=== PATIENT | male | born 1965 | race Caucasian/White ===

== ENCOUNTER 2018-04-15 09:29 | Day surgery (SDC) | payer OTHER ==
[~2018-04-15 09:29] MED LIST: Lactated Ringers 1,000 ML IV SCH; Sodium Chloride 0.9% 10 ML Syringe FLUSH PRN; Sodium Chloride 0.9% 2.5 ML Syringe FLUSH PRN
--- NOTE | 2018-04-15 10:39 | PCM.PREANE ---
Preanesthetic Assessment - Anesthesia/Transfusion/Family Hx Anesthesia History: Prior Anesthesia Without Reaction Family History of Anesthesia Reaction: No Transfusion History: No Prior Transfusion(s) Intubation History: Unknown - Review of Systems General: No Symptoms Pulmonary: No Symptoms Cardiovascular: No Symptoms Gastrointestinal: No Symptoms, Other (screening colonoscopy) Neurological: No Symptoms Other: Reports: None - Physical Assessment O2 Sat by Pulse Oximetry: 97 Respiratory Rate: 16 Vital Signs: Last Vital Signs Temp 37 C 04/15/18 10:08 Pulse 108 H 04/15/18 10:08 Resp 16 04/15/18 10:08 BP 140/92 H 04/15/18 10:08 Pulse Ox 97 04/15/18 10:08 Height: 1.68 m Weight: 91.172 kg ASA Class: 2 Mental Status: Alert & Oriented x3 Airway Class: Mallampati = 2 Dentition: Reports: Normal Dentition Thyro-Mental Finger Breadths: 3 Mouth Opening Finger Breadths: 3 ROM/Head Extension: Full Lungs: Clear to Auscultation, Normal Respiratory Effort Cardiovascular: Regular Rate, Regular Rhythm - Allergies Allergies/Adverse Reactions: Allergies Allergy/AdvReac Type Severity Reaction Status Date / Time No Known Allergies Allergy Verified 04/12/18 12:53 - Blood Blood Available: No - Anesthesia Plan Pre-Op Medication Ordered: None - Acknowledgements Anesthesia Type Planned: MAC Pt an Appropriate Candidate for the Planned Anesthesia: Yes Alternatives and Risks of Anesthesia Discussed w Pt/Guardian: Yes Pt/Guardian Understands and Agrees with Anesthesia Plan: Yes PreAnesthesia Questionnaire HEENT History: Reports: Other (See Below) Other HEENT History: wears reading glasses Cardiovascular History: Reports: High Cholesterol Other Respiratory History: smokes 1 PPD/20 years Gastrointestinal History: Reports: GERD Musculoskeletal History: Reports: Back Pain, Chronic, Fracture Other Musculoskeletal History: has herniation of disc at L4-L5, has had Epidural Steroid Injections in the past..... hx of fx left forearm Neurological History: Reports: Concussion Endocrine/Metabolic History: Reports: Obesity/BMI 30+ - Past Surgical History GI Surgical History: Reports: EGD, Hernia, Inguinal Musculoskeletal Surgical History: Reports: Arthroscopic Knee - SUBSTANCE USE Smoking Status *Q: Current Every Day Smoker (1 ppd) Tobacco Use Within Last Twelve Months: Cigarettes Recreational Drug Use History: No - HOME MEDS Home Medications: Home Meds Acetaminophen/Diphenhydramine [Tylenol Pm Ex-Strength Caplet] 1 tab PO BEDTIME PRN 04/12/18 [History] Aspirin [Adult Low Dose Aspirin EC] 81 mg PO DAILY 04/12/18 [History] Esomeprazole Magnesium [Nexium] 20 mg PO DAILY 04/12/18 [History] Fish Oil/[place]-3 Fatty Acids [Fish Oil 1,000 MG] 1,000 mg PO DAILY 04/12/18 [ History] Gemfibrozil 600 mg PO BID 04/12/18 [History] Naproxen 1,000 mg PO QAM 04/12/18 [History] - CURRENT (IN HOUSE) MEDS Current Meds: Current Medications Lactated Ringer's (Ringers, Lactated) 1,000 mls @ 125 mls/hr IV ASDIRECTED KUMAR Last Admin: 04/15/18 10:15 Dose: 125 mls/hr Sodium Chloride (Saline Flush) 10 ml FLUSH ASDIRECTED PRN PRN Reason: Keep Vein Open Sodium Chloride (Saline Flush) 2.5 ml FLUSH ASDIRECTED PRN PRN Reason: Keep Vein Open Sodium Chloride (Saline Flush) 10 ml FLUSH ASDIRECTED PRN PRN Reason: Keep Vein Open Sodium Chloride (Saline Flush) 2.5 ml FLUSH ASDIRECTED PRN PRN Reason: Keep Vein Open
[2018-04-15] MEDS ORDERED: Lidocaine 2% 5 ML SDV ONE (10:42)
[2018-04-15] MEDS ORDERED: Propofol 200 MG/20 ML SDV ONE (10:42)
[2018-04-15] MEDS ORDERED: Midazolam 1 MG/ML 2 ML SDV ONE (10:42)
[2018-04-15] MEDS ORDERED: fentaNYL 100 MCG/2 ML SDV ONE (10:42)
--- NOTE | 2018-04-15 11:49 | PCM.OPNOTE ---
- General Post-Op/Procedure Note Date of Surgery/Procedure: 04/15/18 Operative Procedure(s): Colonoscopy Findings: Sigmoid colon polyp Pre Op Diagnosis: Normal colonoscopy Post-Op Diagnosis: sigmoid colon polyp Anesthesia Technique: MAC Primary Surgeon: Alysha Lo Condition: Good
--- NOTE | 2018-04-15 12:15 | PCM48HPAN ---
Post Anesthesia Note - EVALUATION WITHIN 48HRS OF ANESTHETIC Vital Signs in Normal Range: Yes Patient Participated in Evaluation: Yes Respiratory Function Stable: Yes Airway Patent: Yes Cardiovascular Function Stable: Yes Hydration Status Stable: Yes Pain Control Satisfactory: Yes Nausea and Vomiting Control Satisfactory: Yes Mental Status Recovered: Yes Resp Rate: 11 - COMMENTS/OBSERVATIONS Free Text/Narrative:: no anesthesia problems
--- NOTE | 2018-04-15 19:41 | OR ---
SURGEON: JOCELIN CORCORAN MD DATE OF PROCEDURE: 04/15/2018 PREOPERATIVE DIAGNOSIS: Screening colonoscopy. POSTOPERATIVE DIAGNOSIS: Sigmoid colon polyp. PROCEDURE PERFORMED: Screening colonoscopy. ANESTHESIA: MAC. INSTRUMENT USED: Olympus colonoscope. EXTENT OF EXAM: To the cecum. PREPARATION: Good. LIMITATIONS: None. INDICATION FOR EXAMINATION: The patient is a 52-year-old male, who presents for first time screening colonoscopy. We discussed the procedure, expected perioperative course, and risks including bleeding, infection, or damage to surrounding structures including perforation. The patient verbalized understanding and wishes to proceed. PROCEDURE IN DETAIL: The patient was brought to the endoscopy suite and placed in a left lateral decubitus position. A time-out was completed verifying the patient's name, age, date of , allergies, and procedure to be performed. Monitored anesthesia care was induced and continuous oxygen was provided via nasal cannula throughout the procedure. After adequate sedation was achieved, a digital rectal exam was performed. This exam was within normal limits. A well lubricated colonoscope was inserted in the rectum and advanced under direct visualization to the level of cecum. The cecum was identified by both visual and anatomic landmarks. A photograph was taken of the cecal cap. The scope was then fully withdrawn while examining the color, texture, anatomy, and integrity of the mucosa from the cecum to the anal canal. The patient was found to have one pedunculated 3 to 5 mm polyp within the sigmoid colon. This was removed in a piecemeal fashion using cold biopsy forceps. The scope was then brought into the rectum and retroflexed to allow visualization of the anal canal opening. This appeared normal and a photograph was taken. The scope was then straightened out and removed from the patient. The patient was then transferred to the PACU in stable condition. ENDOSCOPIC DIAGNOSIS: Sigmoid colon polyp. RECOMMENDATIONS: Follow up in clinic in 2 weeks. DALILA WELDON /[id number]
== END 2018-04-15 12:21 | disposition home or self-care (01) ==
LOC: MW.SDS 09:29
PROVIDERS: ATTEND Surgery
DX: Z12.11 Encounter for screening for malignant neoplasm of colon (principal); D12.5 Benign neoplasm of sigmoid colon; K27.9 Peptic ulcer, site unspecified, unspecified as acute or chronic, without hemorrhage or perforation; K21.9 Gastro-esophageal reflux disease without esophagitis; G89.29 Other chronic pain; M54.9 Dorsalgia, unspecified; E78.00 Pure hypercholesterolemia, unspecified; E66.9 Obesity, unspecified; Z68.32 Body mass index [BMI] 32.0-32.9, adult; F17.210 Nicotine dependence, cigarettes, uncomplicated; Z79.899 Other long term (current) drug therapy; Z79.82 Long term (current) use of aspirin
CPT/HCPCS: 45380; J2250; J3010; J7120; 00811; 88305; J2704

== ENCOUNTER 2020-05-27 04:58 | Emergency (ER) | payer OTHER ==
[2020-05-27] MEDS ORDERED: Ondansetron 4 MG/2 ML SDV ONE (05:09)
[2020-05-27] MEDS ORDERED: Ondansetron 4 MG/2 ML SDV IVPUSH ONE ×2 (05:12→07:52)
[2020-05-27] MEDS ORDERED: Sodium Chloride 0.9% 1,000 ML IV SCH (05:15)
--- NOTE | 2020-05-27 05:23 | EDM.PDOC ---
<Michele Santoyo - Last Filed: 05/27/20 07:39> ED HPI GENERAL MEDICAL PROBLEM - General Chief Complaint: Gastrointestinal Problem Stated Complaint: DEHYDRATION, VOMITING Time Seen by Provider: 05/27/20 05:19 - History of Present Illness INITIAL COMMENTS - FREE TEXT/NARRATIVE: History of present illness: [] About 6 AM on 26 May 2020 the patient had several shots. He drinks what he calls too much. Yesterday he did not have any symptoms after that. This morning he woke up at 430 which is his usual time. He was nauseated and had crampy abdominal pain. He has vomited more times than he can count. He has not made urine. He has had diarrhea several times. He has crampy abdominal pain that is moderately severe and lets up after he has a bowel movement. History hernia surgery. If the patient smokes. He also takes one blood pressure medicine and some supplements. Review of systems: As per history of present illness and below otherwise all systems reviewed and negative. Past medical history: As per history of present illness and as reviewed below otherwise noncontributory. Surgical history: As per history of present illness and as reviewed below otherwise noncontributory. Social history: No reported history of drug or alcohol abuse. Family history: As per history of present illness and as reviewed below otherwise noncontributory. Physical exam: Constitutional - well developed, well-nourished and in no acute distress HEENT - normocephalic, no evidence of trauma - external nose and mouth normal - no mass in neck and no JVD - mucosae moist EYES - full EOM, PERRL, no icterus - no evidence of inflammation, injection, or drainage Respiratory - no respiratory distress, equal bilateral expansion, lungs clear to auscultation and no abnormal lung sounds Cardiovascular - Regular Rhythm with S1 and S2 appreciated and no murmur, gallop or rub. Peripheral pulses symmetrically normal in all four extremities GI - abdomen soft without distension or organomegaly - normal bowel sounds - no guard or rebound Musculoskeletal no gross deformity of long bones or joints - no tenderness, swelling or edema Neurologic -slight tremor at rest worse with intention. Alert and oriented times four - CN II-XII grossly intact - motor sensory and coordination symmetrically normal Psychiatric - appropriate mood and affect with normal thought content Hematologic - No petechiae or purpura - mucosa appropriate color and sclera not pale - normal nail bed color and refill Integument - no rash or evidence of trauma - normal turgor Diagnostics: Lab work and verify response to hydration ondansetron [] Therapeutics: [] Ondansetron and fluids Impression: [] Plan: [] Definitive disposition and diagnosis as appropriate pending reevaluation and review of above. abdomen Pain Score (Numeric/FACES): 6 - Related Data Allergies Allergy/AdvReac Type Severity Reaction Status Date / Time No Known Allergies Allergy Verified 05/27/20 05:13 Home Meds: Home Meds Esomeprazole Magnesium [Nexium] 20 mg PO DAILY 04/12/18 [History] Fish Oil/[place]-3 Fatty Acids [Fish Oil 1,000 MG] 1,000 mg PO DAILY 04/12/18 [History] Gemfibrozil 600 mg PO BID 04/12/18 [History] Naproxen 1,000 mg PO QAM 04/12/18 [History] Olmesartan Medoxomil 5 mg PO DAILY 05/27/20 [History] Past Medical History HEENT History: Reports: Other (See Below) Other HEENT History: wears reading glasses Cardiovascular History: Reports: Hypertension Other Respiratory History: smokes 1 PPD/20 years Gastrointestinal History: Reports: GERD Musculoskeletal History: Reports: Back Pain, Chronic, Fracture Other Musculoskeletal History: has herniation of disc at L4-L5, has had Epidural Steroid Injections in the past..... hx of fx left forearm Neurological History: Reports: Concussion Endocrine/Metabolic History: Reports: Obesity/BMI 30+ - Past Surgical History HEENT Surgical History: Reports: None Cardiovascular Surgical History: Reports: None GI Surgical History: Reports: EGD, Hernia, Inguinal Neurological Surgical History: Reports: None Musculoskeletal Surgical History: Reports: Arthroscopic Knee Social & Family History - Family History Family Medical History: Noncontributory - Tobacco Use Smoking Status *Q: Current Every Day Smoker Years of Tobacco use: 15 Packs/Tins Daily: 1 - Caffeine Use Caffeine Use: Reports: Coffee - Recreational Drug Use Recreational Drug Use: No ED ROS GENERAL - Review of Systems Review Of Systems: Comprehensive ROS is negative, except as noted in HPI. ED EXAM, GENERAL - Physical Exam Exam: See Below Free Text/Narrative:: The physical exam is in my HPI EKG INTERPRETATION EKG Date: 05/27/20 Rhythm: Other (Sinus tachycardia) Rate (Beats/Min): 120 P-Wave: Present ST-T: Other (Nonspecific ST abnormality) Comparison: NA - No Prior EKG EKG Interpretation Comments: ST segment depressions of unknown significance. No obvious acute KS Course - Vital Signs Text/Narrative:: 6:42 AM renal failure is identified. He had lab work about a year ago at the [facility] and was not told there is anything wrong with his kidneys. He is not diabetic. He does take Loren 5 mg 2 tabs in the morning. He has not had it yet. Blood pressure is 168 systolic and I allow him to take 10 mg of his own olmesartan. The patient does not feel like he has any urine in his bladder. After liter fluid he still has no urine bladder scanner will be obtained and he will be tested. If he has urine will insert a Hurtado. If not we will consult medicine for admission. 50 3 AM the patient urinated about 5 mL of urine in the bladder scanner shows it is empty. He takes naproxen 1g a day for a long time according to him. 1 AM I discussed the case with hospitalist here Dr. Isbell. Because of the acid and elevated sugar and low calcium she wanted nephrology involved. 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 Michele Santoyo. CBC shows a leukocytosis with neutrophilic predominance. Metabolic panel shows acute renal failure with creatinine of 4.5. Elevated glucose and hypocalcemia noted along with elevated total bilirubin. Negative troponin. Normal lipase. Urinalysis shows positive nitrites, moderate bilirubin, trace leukocyte esterase, 2+ bacteria. Patient continues to have resting tachycardia so I ordered a second liter of crystalloid and we will repeat his twelve-lead EKG. He has some ST segment depression in the precordial leads but adamantly denies any chest discomfort or shortness of breath to suggest acute coronary syndrome. Repeat twelve-lead EKG at 8:30 AM shows sinus tachycardia at 118 bpm. Did note T wave inversions in leads II and III. Also noted persistent ST segment depression in leads V2 through V6, seen on the initial ECG. Patient adamantly denies any chest discomfort or shortness of breath and troponin testing is negative. I am wondering if these ST segment changes are rate related or possibly due to electrolyte disturbance such as is hypocalcemia. Suspicion for an acute coronary syndrome is low at this point. He was transferred to the care of the ground EMS crew in good condition. Last Recorded V/S: Last Vital Signs Temp 36.4 C 05/27/20 05:05 Pulse 118 H 05/27/20 08:50 Resp 16 05/27/20 07:37 BP 169/72 H 05/27/20 08:50 Pulse Ox 97 05/27/20 08:50 - Orders/Labs/Meds Orders: Active Orders 24 hr Category Date Time Status Communication Order [RC] STAT Care 05/27/20 06:41 Active EKG Documentation Completion [RC] AM Care 05/27/20 07:10 Active EKG Documentation Completion [RC] STAT Care 05/27/20 08:25 Active Labs: Laboratory Tests 05/27/20 05/27/20 05/27/20 Range/Units 05:10 05:10 06:45 WBC 20.05 H (4.0-11.0) K/uL RBC 4.95 (4.50-5.90) M/uL Hgb 17.1 H (13.0-17.0) g/dL Hct 48.0 (38.0-50.0) % MCV 97.0 (80.0-98.0) fL MCH 34.5 H (27.0-32.0) pg MCHC 35.6 (31.0-37.0) g/dL RDW Std Deviation 46.0 (28.0-62.0) fl RDW Coeff of Heidy 13 (11.0-15.0) % Plt Count 255 (150-400) K/uL MPV 12.00 (7.40-12.00) fL Neut % (Auto) 85.4 H (48.0-80.0) % Lymph % (Auto) 11.0 L (16.0-40.0) % Early % (Auto) 3.4 (0.0-15.0) % Eos % (Auto) 0.0 (0.0-7.0) % Baso % (Auto) 0.2 (0.0-1.5) % Neut # (Auto) 17.1 H (1.4-5.7) K/uL Lymph # (Auto) 2.2 (0.6-2.4) K/uL Early # (Auto) 0.7 (0.0-0.8) K/uL Eos # (Auto) 0.0 (0.0-0.7) K/uL Baso # (Auto) 0.0 (0.0-0.1) K/uL Nucleated RBC % 0.1 /100WBC Nucleated RBCs # 0 K/uL Sodium 136 (136-148) mmol/L Potassium 3.5 (3.5-5.1) mmol/L Chloride 92 L (98-107) mmol/L Carbon Dioxide 17.8 L (21.0-32.0) mmol/L BUN 27 H (7.0-18.0) mg/dL Creatinine 4.5 H (0.8-1.3) mg/dL Est Cr Clr Drug Dosing 16.74 mL/min Estimated GFR (MDRD) 13.7 ml/min Glucose 247 H (74-106) mg/dL Calcium 6.6 L (8.5-10.1) mg/dL Total Bilirubin 1.4 H (0.2-1.0) mg/dL AST 76 H (15-37) IU/L ALT 62 (14-63) IU/L Alkaline Phosphatase 86 (46-116) U/L Troponin I (0.000-0.056) ng/mL Total Protein 9.8 H (6.4-8.2) g/dL Albumin 5.3 H (3.4-5.0) g/dL Globulin 4.5 H (2.6-4.0) g/dL Albumin/Globulin Ratio 1.2 (0.9-1.6) Lipase 100 (73-393) U/L Urine Color YELLOW Urine Appearance SLT CLOUDY Urine pH 5.0 (5.0-8.0) Ur Specific [place] >= 1.030 (1.001-1.035) Urine Protein 100 H (NEGATIVE) mg/dL Urine Glucose (UA) NEGATIVE (NEGATIVE) mg/dL Urine Ketones TRACE H (NEGATIVE) mg/dL Urine Occult Blood TRACE-INTACT H (NEGATIVE) Urine Nitrite POSITIVE H (NEGATIVE) Urine Bilirubin MODERATE H (NEGATIVE) Urine Ictotest NEGATIVE Urine Urobilinogen 1.0 (<2.0) EU/dL Ur Leukocyte Esterase TRACE H (NEGATIVE) U Hyaline Cast (Auto) 0-2 (0-2/LPF) Urine RBC 0-2 (0-2/HPF) Urine WBC 4-7 (0-5/HPF) Ur Epithelial Cells FEW (NONE-FEW) Calcium Oxalate Crystal RARE (NEGATIVE) Urine Bacteria 2+ H (NEGATIVE) Fine Granular Casts 0-1 (NEGATIVE) Urine Mucus LIGHT (NONE-MOD) Urinalysis Comment 05/27/20 Range/Units 07:52 WBC (4.0-11.0) K/uL RBC (4.50-5.90) M/uL Hgb (13.0-17.0) g/dL Hct (38.0-50.0) % MCV (80.0-98.0) fL MCH (27.0-32.0) pg MCHC (31.0-37.0) g/dL RDW Std Deviation (28.0-62.0) fl RDW Coeff of [place] (11.0-15.0) % Plt Count (150-400) K/uL MPV (7.40-12.00) fL Neut % (Auto) (48.0-80.0) % Lymph % (Auto) (16.0-40.0) % Early % (Auto) (0.0-15.0) % Eos % (Auto) (0.0-7.0) % Baso % (Auto) (0.0-1.5) % Neut # (Auto) (1.4-5.7) K/uL Lymph # (Auto) (0.6-2.4) K/uL Early # (Auto) (0.0-0.8) K/uL Eos # (Auto) (0.0-0.7) K/uL Baso # (Auto) (0.0-0.1) K/uL Nucleated RBC % /100WBC Nucleated RBCs # K/uL Sodium (136-148) mmol/L Potassium (3.5-5.1) mmol/L Chloride (98-107) mmol/L Carbon Dioxide (21.0-32.0) mmol/L BUN (7.0-18.0) mg/dL Creatinine (0.8-1.3) mg/dL Est Cr Clr Drug Dosing mL/min Estimated GFR (MDRD) ml/min Glucose (74-106) mg/dL Calcium (8.5-10.1) mg/dL Total Bilirubin (0.2-1.0) mg/dL AST (15-37) IU/L ALT (14-63) IU/L Alkaline Phosphatase (46-116) U/L Troponin I < 0.050 (0.000-0.056) ng/mL Total Protein (6.4-8.2) g/dL Albumin (3.4-5.0) g/dL Globulin (2.6-4.0) g/dL Albumin/Globulin Ratio (0.9-1.6) Lipase (73-393) U/L Urine Color Urine Appearance Urine pH (5.0-8.0) Ur Specific [place] (1.001-1.035) Urine Protein (NEGATIVE) mg/dL Urine Glucose (UA) (NEGATIVE) mg/dL Urine Ketones (NEGATIVE) mg/dL Urine Occult Blood (NEGATIVE) Urine Nitrite (NEGATIVE) Urine Bilirubin (NEGATIVE) Urine Ictotest Urine Urobilinogen (<2.0) EU/dL Ur Leukocyte Esterase (NEGATIVE) U Hyaline Cast (Auto) (0-2/LPF) Urine RBC (0-2/HPF) Urine WBC (0-5/HPF) Ur Epithelial Cells (NONE-FEW) Calcium Oxalate Crystal (NEGATIVE) Urine Bacteria (NEGATIVE) Fine Granular Casts (NEGATIVE) Urine Mucus (NONE-MOD) Urinalysis Comment Meds: Medications Discontinued Medications Generic Name Dose Route Start Last Admin Trade Name Freq PRN Reason Stop Dose Admin Calcium Gluconate 1 gm 05/27/20 06:59 05/27/20 07:36 Calcium Gluconate IV 05/27/20 07:00 1 gm Q6HR STA Administration Sodium Chloride 1,000 mls @ 999 mls/hr 05/27/20 05:15 05/27/20 05:21 Normal Saline IV 999 mls/hr ASDIRECTED KUMAR Administration Lactated Ringer's 1,000 mls @ 999 mls/hr 05/27/20 07:54 05/27/20 08:09 Ringers, Lactated IV 05/27/20 08:54 999 mls/hr .BOLUS ONE Administration Lorazepam 0.5 mg 05/27/20 05:52 05/27/20 06:25 Ativan PO 05/27/20 05:53 0.5 mg ONETIME ONE Administration Ondansetron HCl Confirm 05/27/20 05:09 05/27/20 05:21 Zofran Administered 05/27/20 05:10 Not Given Dose 4 mg .ROUTE .STK-MED ONE Ondansetron HCl 4 mg 05/27/20 05:12 05/27/20 05:21 Zofran IVPUSH 05/27/20 05:13 4 mg ONETIME ONE Administration Ondansetron HCl 4 mg 05/27/20 07:52 05/27/20 08:09 Zofran IVPUSH 05/27/20 07:53 4 mg ONETIME ONE Administration Departure - Departure Time of Disposition: 08:30 Sepsis Event Note (ED) - Focused Exam Vital Signs: Vital Signs Temp Pulse Resp BP Pulse Ox 05/27/20 08:50 118 H 169/72 H 97 05/27/20 07:37 113 H 16 106/69 97 05/27/20 05:45 127 H 18 119/95 H 95 05/27/20 05:08 125 H 149/112 H 05/27/20 05:05 36.4 C 18 97
[2020-05-27 05:46] LABS: CARBON DIOXIDE,CO2 17.8 mmol/L (21.0-32.0); POTASSIUM,K 3.5 mmol/L (3.5-5.1)
[2020-05-27] MEDS ORDERED: LORazepam 0.5 MG Tab PO ONE (05:52)
[2020-05-27] MEDS ORDERED: Calcium Gluconate 10% 1 GM/10 ML SDV IV STA (06:59)
[2020-05-27] MEDS ORDERED: Lactated Ringers 1,000 ML IV ONE (07:54)
== END 2020-05-27 08:56 ==
LOC: MW.ED 04:58
DX: N17.9 Acute kidney failure, unspecified (principal); E83.51 Hypocalcemia; K52.9 Noninfective gastroenteritis and colitis, unspecified; R73.9 Hyperglycemia, unspecified; F17.210 Nicotine dependence, cigarettes, uncomplicated; K21.9 Gastro-esophageal reflux disease without esophagitis; E66.9 Obesity, unspecified; Z68.29 Body mass index [BMI] 29.0-29.9, adult
CPT/HCPCS: 36415; 51798; 80053; 81001; 83690; 84484; 85025; 93005; 96361; 96374; 96375; 96376; 99285; 99285-25; A9270-GY; J0610; J2405; J7030; J7120

== ENCOUNTER 2023-09-10 09:09 | Day surgery (SDC) | payer OTHER ==
[~2023-09-10 09:09] MED LIST changes: +Sodium Chloride 0.9% 20 ML SDV IV PRN; +propofoL 50 ML ONE
[2023-09-10] MEDS ORDERED: Ondansetron 4 MG/2 ML SDV ONE (09:39)
== END 2023-09-10 11:50 | disposition home or self-care (01) ==
LOC: MW.SDS 09:09
PROVIDERS: ATTEND Surgery
DX: Z12.11 Encounter for screening for malignant neoplasm of colon (principal); K62.1 Rectal polyp; K21.9 Gastro-esophageal reflux disease without esophagitis; I10 Essential (primary) hypertension; F17.210 Nicotine dependence, cigarettes, uncomplicated; Z79.899 Other long term (current) drug therapy
CPT/HCPCS: 45380; J2405; J2704; J7120; 00811; 88305